=== PATIENT | male | born 1990 | race Caucasian/White ===

== ENCOUNTER 2017-08-12 12:27 | Emergency (ER) | payer SELFPAY ==
[2017-08-12 12:41] VITALS: BP 133/85
[2017-08-12] MEDS ORDERED: Tetracaine 0.5% OPTH.SOL 4 ML* 1 DROP BTL ONE (12:41)
[2017-08-12] MEDS ORDERED: Fluorescein Sodium TOPICAL* 1 MG TEST OPHTHALMIC ONE (12:41)
[2017-08-12] MEDS ORDERED: BSS OPTH.SOL* BTL OPHTHALMIC ONE (12:41)
--- NOTE | 2017-08-12 13:35 | UC ---
Eye Complaint HPI - HPI Summary HPI Summary: 2 days of right eye irritation, did have contacts in longer than he was suppose to-- - History of Current Complaint Hx Obtained From: Patient Onset/Duration: Sudden Onset, Lasting Days - 2, Still Present Timing: Constant Severity Initially: Mild Severity Currently: Mild Pain Intensity: 2 Pain Scale Used: 0-10 Numeric Aggravating Factor(s): Nothing Alleviating Factor(s): Nothing Associated Signs And Symptoms: Positive: Drainage (Clear) <Maria Del Rosario Miller - Last Filed: 08/12/17 13:58> <Laurel Sarkar - Last Filed: 08/12/17 14:07> - History of Current Complaint Chief Complaint: UCEye Stated Complaint: EYE COMPLAINT Time Seen by Provider: 08/12/17 13:31 - Allergies/Home Medications Allergies/Adverse Reactions: Allergies Allergy/AdvReac Type Severity Reaction Status Date / Time No Known Allergies Allergy Verified 08/12/17 12:41 PMH/Surg Hx/FS Hx/Imm Hx Previously Healthy: Yes - Surgical History Surgical History: Yes Surgery Procedure, Year, and Place: WISDOM TEETH - Family History Known Family History: Negative: Cardiac Disease, Hypertension, Diabetes - Social History Occupation: Employed Full-time Lives: With Family Alcohol Use: Rare Substance Use Type: None Smoking Status (MU): Light Every Day Tobacco Smoker Amount Used/How Often: 1 PK/WK Have You Smoked in the Last Year: No Cessation Counseling: Patient Advised to Stop <Maria Del Rosario Miller - Last Filed: 08/12/17 13:58> Review of Systems Constitutional: Negative Skin: Negative Eyes: Drainage - clear OD, Eye Redness - OD ENT: Negative Respiratory: Negative Cardiovascular: Negative Gastrointestinal: Negative Genitourinary: Negative Motor: Negative Neurovascular: Negative Musculoskeletal: Negative Neurological: Negative Psychological: Negative Is Patient Immunocompromised?: No All Other Systems Reviewed And Are Negative: Yes <Maria Del Rosario Miller - Last Filed: 08/12/17 13:58> Physical Exam Triage Information Reviewed: Yes Appearance: Well-Appearing, No Pain Distress, Well-Nourished Vital Signs: Initial Vital Signs Temp 97.5 F 08/12/17 12:35 Pulse 70 08/12/17 12:35 Resp 18 08/12/17 12:35 BP 133/85 08/12/17 12:35 Pulse Ox 100 08/12/17 12:35 Vital Signs Reviewed: Yes Eye Exam: Normal Eyes: Positive: Conjunctiva Clear - os, Conjunctiva Inflamed - od, Discharge - od clear, Other: - perrla, eomi, ENT Exam: Normal ENT: Positive: Normal ENT inspection, Hearing grossly normal. Negative: Muffled voice, Hoarse voice, Dental tenderness, Sinus tenderness Dental Exam: Normal Neck exam: Normal Neck: Positive: Supple, Nontender Respiratory Exam: Normal Respiratory: Positive: Chest non-tender, No respiratory distress, No accessory muscle use Cardiovascular Exam: Normal Cardiovascular: Positive: RRR, Pulses Normal, Brisk Capillary Refill Musculoskeletal Exam: Normal Musculoskeletal: Positive: Strength Intact, ROM Intact, No Edema Neurological Exam: Normal Neurological: Positive: Alert, Fatigued Psychological Exam: Normal Skin Exam: Normal <Maria Del Rosario Miller - Last Filed: 08/12/17 13:58> Vital Signs: Initial Vital Signs Temp 97.5 F 08/12/17 12:35 Pulse 70 08/12/17 12:35 Resp 18 08/12/17 12:35 BP 133/85 08/12/17 12:35 Pulse Ox 100 08/12/17 12:35 <Laurel Sarkar - Last Filed: 08/12/17 14:07> Diagnostics - Laboratory Diagnostic Studies Completed/Ordered: [email or web address] stain right eye, no dye uptake noted, tolerated exam well <Maria Del Rosario Miller - Last Filed: 08/12/17 13:58> Eye Complaint Course/Dx - Course Course Of Treatment: Cipro drops, no contact lens use until resolved plus an additional day, and recheck by eye neonatal intensive care unit nurse if not resolved in 2 days - Differential Dx/Diagnosis Provider Diagnoses: Conjuctivitis OD <Maria Del Rosario Miller - Last Filed: 08/12/17 13:58> Discharge - Sign-Out/Discharge Documenting (check all that apply): Discharge - Billing Disposition and Condition Condition: STABLE Disposition: HOME <Maria Del Rosario Miller - Last Filed: 08/12/17 13:58> - Billing Disposition and Condition Condition: STABLE Disposition: HOME <Laurel Sarkar - Last Filed: 08/12/17 14:07> - Discharge Plan Condition: Stable Disposition: HOME Prescriptions: Ciprofloxacin 0.3% OPTH.CADY* [Cipro 0.3% Opth*] 2 drop RIGHT EYE Q2H 7 Days #1 btl Patient Education Materials: How to Use Eye Drops (ED), Conjunctivitis (ED) Referrals: Júnior Mott MD [Medical Doctor] - 3 Days Additional Instructions: If not significantly resolved in 2 days or worsens at any time follow with your eye neonatal intensive care unit nurse or Dr. Mott. Attestation Statement User Type: Provider - I was available for consult. This patient was seen by the AG[facility]O. The patient was not presented to, seen by, or examined by me. Colin <Laurel Sarkar - Last Filed: 08/12/17 14:07>
[2017-08-12] MEDS ORDERED: Fluorescein Sod TOPICAL 0.6* 0.6 MG TEST OPHTHALMIC ONE (13:39)
== END 2017-08-12 14:00 | disposition home or self-care (01) ==
LOC: UCEAST 12:27
DX: H10.9 Unspecified conjunctivitis (principal); F17.200 Nicotine dependence, unspecified, uncomplicated
CPT/HCPCS: 99212; A9270-GY; G0463